=== PATIENT | male | born 1980 | race Caucasian/White ===

== ENCOUNTER 2019-08-18 15:47 | Emergency (ER) | payer SELFPAY ==
[~2019-08-18] VITALS: Ht 185.4 cm; Wt 118.2 kg
[2019-08-18 17:20] VITALS: BP 119/67
== END 2019-08-18 17:23 | disposition home or self-care (01) ==
LOC: EMS 15:50
DX: L03.211 Cellulitis of face (principal); J45.909 Unspecified asthma, uncomplicated

== ENCOUNTER 2021-07-07 10:30 | Emergency (ER) | payer MEDICAID ==
[~2021-07-07] VITALS: Ht 185.4 cm; Wt 118.2 kg
[2021-07-07 12:41] VITALS: BP 137/93
== END 2021-07-07 12:52 | disposition home or self-care (01) ==
LOC: EMS 10:30
DX: R60.0 Localized edema (principal); F16.10 Hallucinogen abuse, uncomplicated; J45.909 Unspecified asthma, uncomplicated; F17.210 Nicotine dependence, cigarettes, uncomplicated
CPT/HCPCS: 99281; Z7502